=== PATIENT | male | born 1980 | race Caucasian/White ===

== ENCOUNTER 2023-12-17 07:02 | Emergency (ER) | payer MEDICAID ==
[~2023-12-17] VITALS: Ht 188 cm; Wt 71.8 kg
[2023-12-17] MEDS: ONDANSETRON ODT 4 MG TAB PO ONE (07:49)
[2023-12-17 08:10] LABS: Urine Bacteria None Seen /hpf (None Seen)
[2023-12-17 08:16] LABS: Urine Blood TRACE /uL (Negative); Urine Clarity Clear (Clear); Urine Color Yellow (Yellow); Urine Mucus FEW (None Seen); Urine Protein, UAD 1+ (Negative); Urine Specific Gravity 1.029 (1.001-1.035); Urine Urobilinogen Normal (Negative); Urine WBC 1 /hpf (0 - 3); Urine pH 5.5 (5.0-9.0)
[2023-12-17 08:17] LABS: Basophils # (auto) 0 10 ^3/uL (0-0.2); Basophils % (auto) 0.1 % (0.0-2.0); Eosinophils # (auto) 0 10 ^3/uL (0-0.8); Hematocrit 51.6 % (41.0-53.0); Hemoglobin 18.2 g/dL (13.5-17.5); Lymphocytes # (auto) 0.7 10 ^3/uL (0.4-5.4); Lymphocytes % (auto) 6.2 % (10.0-50.0); Mean Corpuscular Hemoglobin 32.2 pg (28.0-32.0); Mean Corpuscular Hgb Conc. 35.4 g/dL (32.0-36.0); Mean Corpuscular Volume 90.9 fL (80.0-100.0); Monocytes # (auto) 0.6 10 ^3/uL (0-1.3); Monocytes % (auto) 4.9 % (0.0-12.0); Neutrophils # (auto) 10.5 10 ^3/uL (1.6-8.6); Neutrophils % (auto) 88.8 % (37.0-80.0); Platelet Count (auto) 179 10^3/uL (140-450); Red Blood Cells 5.67 10^6/uL (4.5-5.90); Red Cell Distribution Width 13.1 % (11.8-14.3); White Blood Cell 11.8 10^3/uL (4.4-10.8)
[2023-12-17 08:23] LABS: Alanine Aminotransferase 31 U/L (7-40); Alkaline Phosphatase 86 U/L (46-116); Anion Gap 12 (5-15); Blood Urea Nitrogen 9 mg/dL (9-23); Calcium 10.4 mg/dL (8.7-10.4); Carbon Dioxide 24 mmol/L (20-30); Chloride 99 mmol/L (98-107); Glucose 111 mg/dL (74-106); Potassium 3.7 mmol/L (3.5-5.1); Sodium 135 mmol/L (136-145)
[2023-12-17 08:24] LABS: Albumin 5.1 g/dL (3.2-4.8); Aspartate Aminotransferase 21 U/L (13-40); BUN/Creatinine Ratio 8.1 (10.0-20.0); Bilirubin, Total 1.5 mg/dL (0.2-1.0); Total Protein 7.8 g/dL (5.7-8.2)
[2023-12-17 08:56] LABS: Lipase 44 U/L (12-53)
[2023-12-17 10:37] VITALS: BP 116/53; PULSE 96; RESP 16; TEMP 97.9; O2SAT 96
[2023-12-17] MEDS ORDERED: HYOS0.1251 SL (10:41)
[2023-12-17] MEDS ORDERED: ZOFR4T PO (10:41)
[2023-12-17] MEDS: DICYCLOMINE HCL 10 MG CAP PO ONE (10:49)
== END 2023-12-17 10:54 | disposition home or self-care (01) ==
LOC: ER 07:02
DX: K52.9 Noninfective gastroenteritis and colitis, unspecified (principal); F17.210 Nicotine dependence, cigarettes, uncomplicated; F12.90 Cannabis use, unspecified, uncomplicated; Z98.890 Other specified postprocedural states
CPT/HCPCS: 36415; 74176; 80053; 81001; 83690; 85025; 99284; J0500; Q0162